=== PATIENT | female | born 1985 | race Two or more races ===

== ENCOUNTER 2020-12-11 20:19 | Emergency (ER) | payer SELFPAY ==
--- NOTE | 2020-12-11 21:27 | EDM.PDOC ---
ED HPI GENERAL MEDICAL PROBLEM - General Chief Complaint: Skin Complaint Stated Complaint: SWOLLEN FACE Time Seen by Provider: 12/11/20 20:45 Source of Information: Reports: Patient History Limitations: Reports: No Limitations - History of Present Illness INITIAL COMMENTS - FREE TEXT/NARRATIVE: The patient presents with facial edema. This started a few days ago. She also has some swelling to the top right of her head that is painful. She has some blurry vision to the right visual field. She has no numbness or weakness. She has no trauma to her face. She has no fever, chills, cough, chest pain, shortness of breath, abdominal pain, nausea or vomiting. She has a history of brain surgery after having a stroke. Onset: Gradual Duration: Day(s): Location: Reports: Head, Face Quality: Reports: Sharp Severity: Moderate Improves with: Reports: None Worsens with: Reports: None Associated Symptoms: Reports: Headaches. Denies: Chest Pain, Cough, Fever/Chills, Nausea/Vomiting, Shortness of Breath Forehead Pain Score (Numeric/FACES): 9 - Related Data Allergies Allergy/AdvReac Type Severity Reaction Status Date / Time latex Allergy Rash Verified 12/11/20 20:47 Home Meds: Home Meds Clopidogrel [Plavix] 75 mg PO DAILY 12/11/20 [History] Hydrocodone/Acetaminophen [Hydrocodone-Acetamin 5-325 mg] 1 - 2 each PO Q6H PRN #15 tablet 12/11/20 [Rx] Metoprolol Succinate [Toprol Xl] 50 mg PO DAILY 12/11/20 [History] cephALEXin [Keflex] 500 mg PO Q6H #40 cap 12/11/20 [Rx] hydroCHLOROthiazide [Hydrochlorothiazide] 25 mg PO DAILY 12/11/20 [History] levETIRAcetam [Roweepra Xr] 500 mg PO DAILY 12/11/20 [History] Past Medical History HEENT History: Reports: None Cardiovascular History: Reports: Hypertension Respiratory History: Reports: None Gastrointestinal History: Reports: None Genitourinary History: Reports: None 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: Musculoskeletal History: Reports: None Neurological History: Reports: CVA, Seizure Psychiatric History: Reports: Anxiety, Depression Endocrine/Metabolic History: Reports: Diabetes, Type II Hematologic History: Reports: None Dermatologic History: Reports: None Social & Family History - Tobacco Use Tobacco Use Status *Q: Never Tobacco User Second Hand Smoke Exposure: No - Recreational Drug Use Recreational Drug Use: No ED ROS GENERAL - Review of Systems Review Of Systems: See Below Constitutional: Reports: No Symptoms HEENT: Reports: Other (Head and facial swelling) Respiratory: Reports: No Symptoms Cardiovascular: Reports: No Symptoms Endocrine: Reports: No Symptoms GI/Abdominal: Reports: No Symptoms : Reports: No Symptoms Musculoskeletal: Reports: No Symptoms Skin: Reports: No Symptoms Neurological: Reports: Headache Psychiatric: Reports: No Symptoms ED EXAM, SKIN/RASH Exam: See Below Exam Limited By: No Limitations General Appearance: Alert, No Apparent Distress Eye Exam: Bilateral Eye: EOMI, Normal Fundi, PERRL Ears: Normal External Exam Nose: Normal Inspection Head: Facial Swelling, Other (Swelling to the top of her head with erythema and pain upon palpation) Neck: Normal Inspection, Supple, Non-Tender Respiratory/Chest: No Respiratory Distress, Lungs Clear, Normal Breath Sounds Cardiovascular: Regular Rate, Rhythm, No Edema, No Murmur GI/Abdominal: Soft, Non-Tender, No Organomegaly, No Mass Back Exam: Normal Inspection Extremities: Normal Inspection Neurological: Alert, Oriented, No Motor/Sensory Deficits Course - Vital Signs Last Recorded V/S: Last Vital Signs Temp 96.9 F 12/11/20 20:42 Pulse 100 12/11/20 20:42 Resp 16 12/11/20 20:42 BP 151/80 H 12/11/20 20:42 Pulse Ox 100 12/11/20 20:42 - Orders/Labs/Meds Orders: Active Orders 24 hr Category Date Time Status Head wo Cont [CT] Stat Exams 12/11/20 21:02 Taken Maxillofacial w/o CM [Max Facial Sinus wo Cont] [CT] Exams 12/11/20 21:03 Taken Stat Meds: Medications Discontinued Medications Generic Name Dose Route Start Last Admin Trade Name Freq PRN Reason Stop Dose Admin Hydrocodone Bitart/Acetaminophen 1 tab 12/11/20 21:59 12/11/20 22:05 Acetaminophen/Hydrocodone 325-5 Mg Tab PO 12/11/20 22:00 1 tab ONETIME ONE Administration - Re-Assessments/Exams Free Text/Narrative Re-Assessment/Exam: 12/11/20 21:[address] of her head and maxillofacial bones. 12/11/20 23:03 Both CTs look good. I did an US of the affected area and there is no abscess to drain. She has cellulitis and the swelling from that is traveling to her face. I will give her a shot of rocephin here and something more for pain. I will get her on some keflex for at home. Departure - Departure Time of Disposition: 23:10 Disposition: Home, Self-Care 01 Condition: Good Clinical Impression: Cellulitis of scalp, Facial edema - Discharge Information *PRESCRIPTION DRUG MONITORING PROGRAM REVIEWED*: Not Applicable *COPY OF PRESCRIPTION DRUG MONITORING REPORT IN PATIENT MANJIT: Not Applicable Prescriptions: Hydrocodone/Acetaminophen [Hydrocodone-Acetamin 5-325 mg] 1 - 2 each PO Q6H PRN #15 tablet PRN Reason: Pain cephALEXin [Keflex] 500 mg PO Q6H #40 cap Referrals: Harley Kauffman MD [Primary Care Provider] - 1 Week Forms: ED Department Discharge, ED Return to Work/School Form Additional Instructions: Take the keflex 4 times per day for 10 days. Put warm compresses on your scalp 3 times per day for 5 days. Take tylenol or motrin as needed for pain. If that does not help, try the hydrocodone. Follow up with Dr Kauffman within a week. Please return if you are worse. Sepsis Event Note (ED) - Evaluation Sepsis Screening Result: No Definite Risk - Focused Exam Vital Signs: Vital Signs Temp Pulse Resp BP Pulse Ox 12/11/20 20:42 96.9 F 100 16 151/80 H 100 - My Orders Last 24 Hours: My Active Orders 12/11/20 21:02 Head wo Cont [CT] Stat 12/11/20 21:03 Maxillofacial w/o CM [Max Facial Sinus wo Cont] [CT] Stat - Assessment/Plan Last 24 Hours: My Active Orders 12/11/20 21:02 Head wo Cont [CT] Stat 12/11/20 21:03 Maxillofacial w/o CM [Max Facial Sinus wo Cont] [CT] Stat
[2020-12-11] MEDS ORDERED: Acetaminophen/HYDROcodone 325-5 MG Tab PO ONE ×2 (21:59→23:05)
[2020-12-11] MEDS ORDERED: cefTRIAXone 1 GM, Lidocaine 1% 2.1 ML IM ONE ×2 (23:05)
--- NOTE | 2020-12-12 08:37 | CT ---
Head CT Technique: Multiple axial sections through the brain were obtained. Intravenous contrast was not utilized. Reconstructed coronal and sagittal images were obtained. Comparison: No prior intracranial imaging is available. Findings: Ventricles along with basal cisterns and sulci over the convexities are within normal limits for the patient's age. Diminished density is seen within the posterior right frontal region as well as in the white matter within the right parietal region. Slight diminished density is seen within the right parietal cortex. These findings are most likely chronic as there is previous craniotomy in this area. No other abnormal parenchymal densities are seen. No evidence of intracranial hemorrhage is seen. No midline shift or mass-effect is seen. Soft tissue swelling is noted within the right frontoparietal region which may relate to previous surgery or could be acute. Bone window settings were reviewed which show prior craniotomy on the right side. Abnormality is noted within the right maxillary sinus believed to represent a large retention cyst measuring 3.4 cm. No acute calvarial abnormality is appreciated. Impression: 1. Prior right-sided craniotomy. Slight soft tissue density is noted within the scalp believed to be post-surgical or less likely due to acute change. Slight post-surgical or post-traumatic change within the right posterior frontal region, the right parietal white matter and parietal cortex. 2. Nothing acute is appreciated on noncontrast head CT study. Diagnostic code #2 I agree with preliminary report from [facility], finalized on 12/11/20, 11:37 PM CDT, code 1
--- NOTE | 2020-12-12 08:39 | CT ---
CT facial bones Technique: Multiple axial sections through the facial bones were obtained. Reconstructed coronal and sagittal images were obtained. Comparison: No prior facial bone study. Findings: Right and left globes are symmetric. No retrobulbar abnormality is seen. Extraocular muscles and optic nerves appear symmetric. Mild mucosal thickening is seen within the inferior left maxillary sinus. Retention cyst is present within the right maxillary sinus measuring up to 3.3 cm. Other visualized portions of the sinuses show nothing acute. Mild nasal septal deviation is seen which appears chronic. No acute facial bone fracture is seen. Soft tissues show normal submandibular salivary glands and parotid salivary glands. No discrete adenopathy is seen within the visualized soft tissue structures. Impression: 1. Paranasal sinus findings which are chronic. 2. Mild nasal septal deviation which is developmental. 3. No acute abnormality is appreciated on CT study of the facial bones. Diagnostic code #2 I agree with preliminary report from [facility], finalized on 12/11/20, 11:50 PM CDT, code 1
== END 2020-12-11 23:30 | disposition home or self-care (01) ==
LOC: JD.ED 20:19
DX: L03.811 Cellulitis of head [any part, except face] (principal); R60.0 Localized edema; I10 Essential (primary) hypertension; E11.9 Type 2 diabetes mellitus without complications; Z91.040 Latex allergy status; Z79.02 Long term (current) use of antithrombotics/antiplatelets; Z79.899 Other long term (current) drug therapy
CPT/HCPCS: 70450; 70486; 96372; 99284; A9270; J0696

== ENCOUNTER 2021-08-01 09:05 | Emergency (ER) | payer BC | END 2021-08-01 10:45 | disposition home or self-care (01) | LOC: JD.ED 09:05 → SUPCPDRO 09:05 → JD.ED 10:45 | DX: J01.00 Acute maxillary sinusitis, unspecified (principal); I10 Essential (primary) hypertension; E11.9 Type 2 diabetes mellitus without complications; Z91.040 Latex allergy status; Z79.02 Long term (current) use of antithrombotics/antiplatelets; Z79.899 Other long term (current) drug therapy; Z86.73 Personal history of transient ischemic attack (TIA), and cerebral infarction without residual deficits | CPT/HCPCS: 70486; 70486-26; 99283-25 ==